=== PATIENT | male | born 1955 | race Hispanic/Latino ===

== ENCOUNTER 2019-04-05 16:47 | Emergency (ER) | payer MEDICARE, OTHER ==
[~2019-04-05] VITALS: Ht 167.6 cm; Wt 159.1 kg
[2019-04-05] MEDS ORDERED: FURO20TA2 PO (16:57)
[2019-04-05] MEDS ORDERED: ZYLO300T6 PO (16:57)
[2019-04-05] MEDS ORDERED: GLIP5TAB20 PO (16:57)
[2019-04-05] MEDS ORDERED: VALS1TAB68 PO (16:57)
[2019-04-05] MEDS ORDERED: AMLO10TA5 PO (16:57)
[2019-04-05 18:07] VITALS: BP 213/98
--- NOTE | 2019-04-05 18:13 | REPVR ---
EXAM: US Duplex Left Upper Extremity Veins, Limited EXAM DATE/TIME: 04/05/2019 5:51 PM CLINICAL HISTORY: 63 years old, male; Pain; Arm and fingers and hand; Bilateral; Left; Additional info: Edema TECHNIQUE: Imaging protocol: Real-time Duplex ultrasound of the Left Upper Extremity with 2-D herrera scale, color Doppler flow and spectral waveform analysis. Limited exam focused on the left upper extremity veins. COMPARISON: No relevant prior studies available. FINDINGS: Left deep veins: Unremarkable. Axillary and brachial veins are patent throughout without thrombus. Normal Doppler waveforms. Normal compressibility and/or augmentation response. Visualized internal jugular and subclavian veins are patent. Left superficial veins: Unremarkable. Visualized cephalic and basilic veins are patent without thrombus. Soft tissues: Complex fusiform shaped partially cystic soft tissue lesion in the left anterior wrist in the region of pain measures 2.7 x 0.1 x 1.9 cm. Finding represent a ganglion cyst. Other findings: No DVT. IMPRESSION: Complex fusiform shaped partially cystic soft tissue lesion in the left anterior wrist in the region of pain measures 2.7 x 0.1 x 1.9 cm. Finding represent a ganglion cyst. No DVT. Electronically signed by: Tavares Kelly On 04/05/2019 18:12:31 PM
[2019-04-05] MEDS ORDERED: IBUP-1022 PO (18:33)
== END 2019-04-05 18:53 | disposition home or self-care (01) ==
LOC: M ED 16:47
DX: M67.432 Ganglion, left wrist (principal); E11.9 Type 2 diabetes mellitus without complications; I10 Essential (primary) hypertension; I25.10 Atherosclerotic heart disease of native coronary artery without angina pectoris; M10.9 Gout, unspecified; Z79.899 Other long term (current) drug therapy; Z79.84 Long term (current) use of oral hypoglycemic drugs